=== PATIENT | female | born 1985 | race Native Hawaiian/Other Pacific Islander ===

== ENCOUNTER 2018-03-22 00:17 | Emergency (ER) | payer OTHER ==
[2018-03-22] MEDS ORDERED: Oxycodone/Acetaminophen 5/325 mg Tab PO STA (01:05)
[2018-03-22] MEDS ORDERED: Oxycodone/Acetaminophen 5/325 mg Tab ONE (01:13)
[2018-03-22 01:35] VITALS: O2SAT 100
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
[2018-03-22 05:49] VITALS: BP 101/65; PULSE 71; RESP 12; TEMP 97.4
--- NOTE | 2018-03-22 08:17 | RAD ---
Date of service: 03/22/2018 PROCEDURE: Cervical Spine Radiographs. HISTORY: Pain. COMPARISON: None available. FINDINGS: BONES: There is normal alignment of the cervical vertebral bodies. There is mild reversal of normal cervical lordosis. Vertebral height is normal. Bone mineralization is normal. There is no acute fracture or traumatic anterior listhesis. The craniocervical junction is normal. The atlantoaxial joint normal. DISC SPACES: Normal. SOFT TISSUES: Normal. No prevertebral soft tissue swelling. OTHER FINDINGS: None. IMPRESSION: No acute fracture or traumatic anterior listhesis. Mild reversal of normal cervical lordosis may be positional or related to muscle spasm.
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
== END 2018-03-22 06:06 | disposition home or self-care (01) ==
LOC: C.ER 00:17
DX: S23.3XXA Sprain of ligaments of thoracic spine, initial encounter (principal); S16.1XXA Strain of muscle, fascia and tendon at neck level, initial encounter; V89.2XXA Person injured in unspecified motor-vehicle accident, traffic, initial encounter